=== PATIENT | male | born 1970 | race Hispanic/Latino ===

== ENCOUNTER 2016-10-27 09:50 | Outpatient (CLI) | payer BC ==
[2016-10-27] MEDS ORDERED: XYLOCAINE TOPICAL 4% TP ONE (10:57)
[2016-10-29] MEDS ORDERED: XYLOCAINE TOPICAL 4% TP ONE (08:48)
== END 2016-10-27 09:51 | disposition home or self-care (01) ==
LOC: WOUND 09:50
PROVIDERS: ATTEND Podiatrist
DX: E11.621 Type 2 diabetes mellitus with foot ulcer (principal); L97.522 Non-pressure chronic ulcer of other part of left foot with fat layer exposed; F41.9 Anxiety disorder, unspecified; I11.0 Hypertensive heart disease with heart failure; I50.9 Heart failure, unspecified; Z87.891 Personal history of nicotine dependence
CPT/HCPCS: 11042; 87075; 87116; G0463

== ENCOUNTER 2016-11-13 11:19 | Outpatient (CLI) | payer BC ==
[2016-11-13] MEDS ORDERED: XYLOCAINE TOPICAL 4% TP ONE ×2 (11:55→12:00)
== END 2016-11-13 11:20 | disposition home or self-care (01) ==
LOC: WOUND 11:19
PROVIDERS: ATTEND Podiatrist
DX: E11.621 Type 2 diabetes mellitus with foot ulcer (principal); L97.522 Non-pressure chronic ulcer of other part of left foot with fat layer exposed; E11.40 Type 2 diabetes mellitus with diabetic neuropathy, unspecified; F41.9 Anxiety disorder, unspecified; I11.0 Hypertensive heart disease with heart failure; I50.9 Heart failure, unspecified; Z89.9 Acquired absence of limb, unspecified; Z87.891 Personal history of nicotine dependence

== ENCOUNTER 2016-11-24 07:48 | Outpatient (CLI) | payer BC ==
[2016-11-24] MEDS ORDERED: XYLOCAINE TOPICAL 4% TP ONE ×2 (08:05→14:40)
== END 2016-11-24 07:49 | disposition home or self-care (01) ==
LOC: WOUND 07:48
PROVIDERS: ATTEND Podiatrist
DX: E11.621 Type 2 diabetes mellitus with foot ulcer (principal); L97.522 Non-pressure chronic ulcer of other part of left foot with fat layer exposed; E11.40 Type 2 diabetes mellitus with diabetic neuropathy, unspecified; I11.0 Hypertensive heart disease with heart failure; I50.9 Heart failure, unspecified; Z89.9 Acquired absence of limb, unspecified; Z87.891 Personal history of nicotine dependence; F41.9 Anxiety disorder, unspecified

== ENCOUNTER 2016-12-08 07:54 | Outpatient (CLI) | payer BC ==
[2016-12-08] MEDS ORDERED: XYLOCAINE TOPICAL 2% ONE (08:05)
[2016-12-08] MEDS ORDERED: XYLOCAINE TOPICAL 2% TP ONE (09:53)
== END 2016-12-08 07:55 | disposition home or self-care (01) ==
LOC: WOUND 07:54
PROVIDERS: ATTEND Podiatrist
DX: E11.621 Type 2 diabetes mellitus with foot ulcer (principal); L97.522 Non-pressure chronic ulcer of other part of left foot with fat layer exposed; E11.40 Type 2 diabetes mellitus with diabetic neuropathy, unspecified; F41.9 Anxiety disorder, unspecified; I11.0 Hypertensive heart disease with heart failure; I50.9 Heart failure, unspecified; Z89.9 Acquired absence of limb, unspecified; Z87.891 Personal history of nicotine dependence

== ENCOUNTER 2016-12-14 10:02 | Outpatient (CLI) | payer BC ==
--- NOTE | 2016-12-14 10:53 | XRay Report ---
LEFT FOOT, 3 views: History: Left foot injury. No comparison. 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 A soft tissue bandage is present on the distal foot. There is no obvious fracture, bony destruction or periostitis. No erosive joint pathology. Mild distal soft tissue swelling. IMPRESSION: Soft tissue swelling. No acute osseous findings. Surgical changes as described.
== END 2016-12-14 10:03 | disposition home or self-care (01) ==
LOC: XRAY 10:02
PROVIDERS: ATTEND Podiatrist
DX: S99.922D Unspecified injury of left foot, subsequent encounter (principal); L97.529 Non-pressure chronic ulcer of other part of left foot with unspecified severity; Z89.422 Acquired absence of other left toe(s); X58.XXXD Exposure to other specified factors, subsequent encounter

== ENCOUNTER 2016-12-15 08:02 | Outpatient (CLI) | payer BC ==
[2016-12-15] MEDS ORDERED: XYLOCAINE TOPICAL 2% ONE (08:08)
[2016-12-15] MEDS ORDERED: XYLOCAINE TOPICAL 4% TP ONE (12:20)
== END 2016-12-15 08:03 | disposition home or self-care (01) ==
LOC: WOUND 08:02
PROVIDERS: ATTEND Podiatrist
DX: E11.621 Type 2 diabetes mellitus with foot ulcer (principal); L97.522 Non-pressure chronic ulcer of other part of left foot with fat layer exposed; E11.40 Type 2 diabetes mellitus with diabetic neuropathy, unspecified; I11.0 Hypertensive heart disease with heart failure; I50.9 Heart failure, unspecified; F41.9 Anxiety disorder, unspecified; Z87.891 Personal history of nicotine dependence

== ENCOUNTER 2016-12-22 07:57 | Outpatient (CLI) | payer BC ==
[2016-12-22] MEDS ORDERED: XYLOCAINE TOPICAL 4% TP ONE ×2 (08:02→15:58)
== END 2016-12-22 07:58 | disposition home or self-care (01) ==
LOC: WOUND 07:57
PROVIDERS: ATTEND Podiatrist
DX: E11.621 Type 2 diabetes mellitus with foot ulcer (principal); L97.521 Non-pressure chronic ulcer of other part of left foot limited to breakdown of skin; E11.40 Type 2 diabetes mellitus with diabetic neuropathy, unspecified; I11.0 Hypertensive heart disease with heart failure; I50.9 Heart failure, unspecified; Z87.891 Personal history of nicotine dependence

== ENCOUNTER 2016-12-29 07:58 | Outpatient (CLI) | payer BC ==
[2016-12-29] MEDS ORDERED: XYLOCAINE TOPICAL 4% TP ONE ×2 (08:08→13:59)
== END 2016-12-29 07:59 | disposition home or self-care (01) ==
LOC: WOUND 07:58
PROVIDERS: ATTEND Surgery
DX: E11.621 Type 2 diabetes mellitus with foot ulcer (principal); L97.521 Non-pressure chronic ulcer of other part of left foot limited to breakdown of skin; E11.40 Type 2 diabetes mellitus with diabetic neuropathy, unspecified; I11.0 Hypertensive heart disease with heart failure; I50.9 Heart failure, unspecified; Z89.9 Acquired absence of limb, unspecified; Z87.891 Personal history of nicotine dependence

== ENCOUNTER 2017-01-15 07:52 | Outpatient (CLI) | payer BC ==
[2017-01-15] MEDS ORDERED: XYLOCAINE TOPICAL 4% TP ONE (08:05)
== END 2017-01-15 07:53 | disposition home or self-care (01) ==
LOC: WOUND 07:52
PROVIDERS: ATTEND Podiatrist
DX: E11.621 Type 2 diabetes mellitus with foot ulcer (principal); L97.522 Non-pressure chronic ulcer of other part of left foot with fat layer exposed; E11.40 Type 2 diabetes mellitus with diabetic neuropathy, unspecified; F41.9 Anxiety disorder, unspecified; I11.0 Hypertensive heart disease with heart failure; I50.9 Heart failure, unspecified; Z89.9 Acquired absence of limb, unspecified; Z87.891 Personal history of nicotine dependence

== ENCOUNTER 2017-01-29 07:55 | Outpatient (CLI) | payer BC ==
[2017-01-29] MEDS ORDERED: XYLOCAINE TOPICAL 2% ONE (08:28)
[2017-01-29] MEDS ORDERED: XYLOCAINE TOPICAL 2% TP ONE (09:54)
== END 2017-01-29 07:56 | disposition home or self-care (01) ==
LOC: WOUND 07:55
PROVIDERS: ATTEND Podiatrist
DX: E11.621 Type 2 diabetes mellitus with foot ulcer (principal); L97.523 Non-pressure chronic ulcer of other part of left foot with necrosis of muscle; E11.40 Type 2 diabetes mellitus with diabetic neuropathy, unspecified; L97.522 Non-pressure chronic ulcer of other part of left foot with fat layer exposed; I11.0 Hypertensive heart disease with heart failure; I50.9 Heart failure, unspecified; Z87.891 Personal history of nicotine dependence

== ENCOUNTER 2017-02-03 07:52 | Outpatient (CLI) | payer BC ==
--- NOTE | 2017-02-03 09:59 | Magnetic Resonance Report ---
MRI of the left foot. History: Cutaneous ulceration. Procedure: A multisequence multiplanar study was performed without contrast. Findings: Amputation of the first and second toes has been performed. There is soft tissue edema adjacent to the distal aspect of the first and second metatarsal heads. However there is no abnormal signal within the osseous structures to suggest osteomyelitis. No abnormal soft tissue fluid collections are seen. Impression: Inflammatory changes/ cellulitis in the soft tissues adjacent to the first and second metatarsal heads. No evidence of osteomyelitis.
== END 2017-02-03 07:53 | disposition home or self-care (01) ==
LOC: MRI 07:52
PROVIDERS: ATTEND Podiatrist
DX: E11.621 Type 2 diabetes mellitus with foot ulcer (principal); L97.529 Non-pressure chronic ulcer of other part of left foot with unspecified severity; L98.7 Excessive and redundant skin and subcutaneous tissue; Z89.422 Acquired absence of other left toe(s)
CPT/HCPCS: 73721

== ENCOUNTER 2017-02-05 07:53 | Outpatient (CLI) | payer BC ==
[2017-02-05] MEDS ORDERED: XYLOCAINE TOPICAL 4% TP ONE ×2 (08:14→08:25)
== END 2017-02-05 07:54 | disposition home or self-care (01) ==
LOC: WOUND 07:53
PROVIDERS: ATTEND Podiatrist
DX: E11.621 Type 2 diabetes mellitus with foot ulcer (principal); L97.523 Non-pressure chronic ulcer of other part of left foot with necrosis of muscle; E11.40 Type 2 diabetes mellitus with diabetic neuropathy, unspecified; I11.0 Hypertensive heart disease with heart failure; I50.9 Heart failure, unspecified; Z89.9 Acquired absence of limb, unspecified; Z87.891 Personal history of nicotine dependence

== ENCOUNTER 2017-02-19 07:48 | Outpatient (CLI) | payer BC ==
[2017-02-19] MEDS ORDERED: XYLOCAINE TOPICAL 4% TP ONE ×2 (08:13→08:22)
[2017-02-19] MEDS ORDERED: DAKIN'S FULL STRENGTH ONE (08:37)
[2017-02-19] MEDS ORDERED: DAKIN'S FULL STRENGTH TP ONE (15:24)
== END 2017-02-19 07:49 | disposition home or self-care (01) ==
LOC: WOUND 07:48
PROVIDERS: ATTEND Podiatrist
DX: E11.621 Type 2 diabetes mellitus with foot ulcer (principal); L97.522 Non-pressure chronic ulcer of other part of left foot with fat layer exposed; L97.523 Non-pressure chronic ulcer of other part of left foot with necrosis of muscle; E11.40 Type 2 diabetes mellitus with diabetic neuropathy, unspecified; F41.9 Anxiety disorder, unspecified; I11.0 Hypertensive heart disease with heart failure; I50.9 Heart failure, unspecified; Z98.49 Cataract extraction status, unspecified eye; Z87.891 Personal history of nicotine dependence

== ENCOUNTER 2017-02-26 07:47 | Outpatient (CLI) | payer BC ==
[2017-02-26] MEDS ORDERED: XYLOCAINE TOPICAL 4% TP ONE ×2 (08:42→08:59)
== END 2017-02-26 07:48 | disposition home or self-care (01) ==
LOC: WOUND 07:47
PROVIDERS: ATTEND Podiatrist
DX: E11.621 Type 2 diabetes mellitus with foot ulcer (principal); L97.522 Non-pressure chronic ulcer of other part of left foot with fat layer exposed; L97.523 Non-pressure chronic ulcer of other part of left foot with necrosis of muscle; E11.40 Type 2 diabetes mellitus with diabetic neuropathy, unspecified; F41.9 Anxiety disorder, unspecified; I11.0 Hypertensive heart disease with heart failure; I50.9 Heart failure, unspecified; Z98.62 Peripheral vascular angioplasty status; Z89.9 Acquired absence of limb, unspecified; Z87.891 Personal history of nicotine dependence

== ENCOUNTER 2017-03-12 08:05 | Outpatient (CLI) | payer BC ==
[2017-03-12] MEDS ORDERED: XYLOCAINE TOPICAL 4% TP ONE ×2 (08:18→09:00)
== END 2017-03-12 08:06 | disposition home or self-care (01) ==
LOC: WOUND 08:05
PROVIDERS: ATTEND Podiatrist
DX: E11.621 Type 2 diabetes mellitus with foot ulcer (principal); L97.522 Non-pressure chronic ulcer of other part of left foot with fat layer exposed; E11.40 Type 2 diabetes mellitus with diabetic neuropathy, unspecified; F41.9 Anxiety disorder, unspecified; I11.0 Hypertensive heart disease with heart failure; I50.9 Heart failure, unspecified; Z98.62 Peripheral vascular angioplasty status; Z87.891 Personal history of nicotine dependence
CPT/HCPCS: 97605

== ENCOUNTER 2017-03-15 13:02 | Outpatient (CLI) | payer BC | END 2017-03-15 13:03 | disposition home or self-care (01) | LOC: WOUND 13:02 | PROVIDERS: ATTEND Internal Medicine | DX: E11.621 Type 2 diabetes mellitus with foot ulcer (principal); L97.522 Non-pressure chronic ulcer of other part of left foot with fat layer exposed; E11.40 Type 2 diabetes mellitus with diabetic neuropathy, unspecified; I11.0 Hypertensive heart disease with heart failure; I50.9 Heart failure, unspecified; Z87.891 Personal history of nicotine dependence | CPT/HCPCS: 87075; 87116; 97605; G0463; 99213 ==

== ENCOUNTER 2017-03-19 07:48 | Outpatient (CLI) | payer BC ==
[2017-03-19] MEDS ORDERED: XYLOCAINE TOPICAL 4% TP ONE ×2 (08:15→08:55)
== END 2017-03-19 07:49 | disposition home or self-care (01) ==
LOC: WOUND 07:48
PROVIDERS: ATTEND Podiatrist
DX: E11.621 Type 2 diabetes mellitus with foot ulcer (principal); L97.522 Non-pressure chronic ulcer of other part of left foot with fat layer exposed; E11.40 Type 2 diabetes mellitus with diabetic neuropathy, unspecified; I11.0 Hypertensive heart disease with heart failure; I50.9 Heart failure, unspecified; F41.9 Anxiety disorder, unspecified; Z87.891 Personal history of nicotine dependence
CPT/HCPCS: 97605

== ENCOUNTER 2017-03-23 13:24 | Outpatient (CLI) | payer BC | END 2017-03-23 13:25 | disposition home or self-care (01) | LOC: WOUND 13:24 | PROVIDERS: ATTEND Surgery | DX: E11.621 Type 2 diabetes mellitus with foot ulcer (principal); L97.521 Non-pressure chronic ulcer of other part of left foot limited to breakdown of skin; I11.0 Hypertensive heart disease with heart failure; I50.9 Heart failure, unspecified; Z89.9 Acquired absence of limb, unspecified; Z87.891 Personal history of nicotine dependence | CPT/HCPCS: 97605 ==

== ENCOUNTER 2017-03-26 07:54 | Outpatient (CLI) | payer BC ==
[2017-03-26] MEDS ORDERED: XYLOCAINE TOPICAL 4% TP ONE ×3 (08:24→09:29)
== END 2017-03-26 07:55 | disposition home or self-care (01) ==
LOC: WOUND 07:54
PROVIDERS: ATTEND Podiatrist
DX: E11.621 Type 2 diabetes mellitus with foot ulcer (principal); L97.522 Non-pressure chronic ulcer of other part of left foot with fat layer exposed; E11.40 Type 2 diabetes mellitus with diabetic neuropathy, unspecified; I11.0 Hypertensive heart disease with heart failure; I50.9 Heart failure, unspecified; F41.9 Anxiety disorder, unspecified; Z89.9 Acquired absence of limb, unspecified; Z87.891 Personal history of nicotine dependence
CPT/HCPCS: 97605

== ENCOUNTER 2017-04-02 08:00 | Outpatient (CLI) | payer BC ==
[2017-04-02] MEDS ORDERED: XYLOCAINE TOPICAL 4% TP ONE ×2 (08:07→08:12)
== END 2017-04-02 08:01 | disposition home or self-care (01) ==
LOC: WOUND 08:00
PROVIDERS: ATTEND Podiatrist
DX: E11.621 Type 2 diabetes mellitus with foot ulcer (principal); L97.522 Non-pressure chronic ulcer of other part of left foot with fat layer exposed; E11.40 Type 2 diabetes mellitus with diabetic neuropathy, unspecified; I11.0 Hypertensive heart disease with heart failure; I50.9 Heart failure, unspecified; F41.9 Anxiety disorder, unspecified; Z87.891 Personal history of nicotine dependence
CPT/HCPCS: 97605

== ENCOUNTER 2017-04-06 12:59 | Outpatient (CLI) | payer BC | END 2017-04-06 13:00 | disposition home or self-care (01) | LOC: WOUND 12:59 | PROVIDERS: ATTEND Surgery | DX: E11.621 Type 2 diabetes mellitus with foot ulcer (principal); L97.522 Non-pressure chronic ulcer of other part of left foot with fat layer exposed; E11.40 Type 2 diabetes mellitus with diabetic neuropathy, unspecified; I11.0 Hypertensive heart disease with heart failure; I50.9 Heart failure, unspecified; Z87.891 Personal history of nicotine dependence | CPT/HCPCS: 97605 ==

== ENCOUNTER 2017-04-13 12:59 | Outpatient (CLI) | payer BC | END 2017-04-13 13:00 | disposition home or self-care (01) | LOC: WOUND 12:59 | PROVIDERS: ATTEND Surgery | DX: E11.621 Type 2 diabetes mellitus with foot ulcer (principal); L97.522 Non-pressure chronic ulcer of other part of left foot with fat layer exposed; E11.40 Type 2 diabetes mellitus with diabetic neuropathy, unspecified; I11.0 Hypertensive heart disease with heart failure; I50.9 Heart failure, unspecified; Z87.891 Personal history of nicotine dependence | CPT/HCPCS: 97605 ==

== ENCOUNTER 2017-04-16 08:05 | Outpatient (CLI) | payer BC ==
[2017-04-16] MEDS ORDERED: XYLOCAINE TOPICAL 4% TP ONE (08:39)
[2017-04-16] MEDS ORDERED: NACL 0.9% 500 ML IR ONE (09:25)
[2017-04-16] MEDS ORDERED: SODIUM CHLORIDE FLUSH SYRINGE 10 ML IV SCH (14:56)
[2017-04-16] MEDS ORDERED: NACL 0.9% IR ONE (14:56)
== END 2017-04-16 08:06 | disposition home or self-care (01) ==
LOC: WOUND 08:05
PROVIDERS: ATTEND Podiatrist
DX: E11.621 Type 2 diabetes mellitus with foot ulcer (principal); L97.522 Non-pressure chronic ulcer of other part of left foot with fat layer exposed; E11.40 Type 2 diabetes mellitus with diabetic neuropathy, unspecified; I11.0 Hypertensive heart disease with heart failure; I50.9 Heart failure, unspecified; F41.9 Anxiety disorder, unspecified; Z87.891 Personal history of nicotine dependence
CPT/HCPCS: 97597

== ENCOUNTER 2017-04-30 07:58 | Outpatient (CLI) | payer BC ==
[2017-04-30] MEDS ORDERED: XYLOCAINE TOPICAL 4% TP ONE ×2 (08:28→08:48)
== END 2017-04-30 07:59 | disposition home or self-care (01) ==
LOC: WOUND 07:58
PROVIDERS: ATTEND Podiatrist
DX: E11.621 Type 2 diabetes mellitus with foot ulcer (principal); L97.522 Non-pressure chronic ulcer of other part of left foot with fat layer exposed; E11.40 Type 2 diabetes mellitus with diabetic neuropathy, unspecified; I11.0 Hypertensive heart disease with heart failure; I50.9 Heart failure, unspecified; F41.9 Anxiety disorder, unspecified; Z98.62 Peripheral vascular angioplasty status; Z87.891 Personal history of nicotine dependence

== ENCOUNTER 2017-05-07 09:01 | Outpatient (CLI) | payer BC ==
[2017-05-07] MEDS ORDERED: XYLOCAINE TOPICAL 4% TP ONE ×2 (09:11→09:12)
== END 2017-05-07 09:02 | disposition home or self-care (01) ==
LOC: WOUND 09:01
PROVIDERS: ATTEND Podiatrist
DX: E11.621 Type 2 diabetes mellitus with foot ulcer (principal); L97.522 Non-pressure chronic ulcer of other part of left foot with fat layer exposed; L97.523 Non-pressure chronic ulcer of other part of left foot with necrosis of muscle; E11.40 Type 2 diabetes mellitus with diabetic neuropathy, unspecified; I11.0 Hypertensive heart disease with heart failure; I50.9 Heart failure, unspecified; F41.9 Anxiety disorder, unspecified; Z98.62 Peripheral vascular angioplasty status; Z87.891 Personal history of nicotine dependence

== ENCOUNTER 2017-05-14 08:42 | Outpatient (CLI) | payer BC ==
[2017-05-14] MEDS ORDERED: XYLOCAINE TOPICAL 4% TP ONE ×2 (09:24→09:36)
== END 2017-05-14 08:43 | disposition home or self-care (01) ==
LOC: WOUND 08:42
PROVIDERS: ATTEND Podiatrist
DX: E11.621 Type 2 diabetes mellitus with foot ulcer (principal); L97.522 Non-pressure chronic ulcer of other part of left foot with fat layer exposed; E11.40 Type 2 diabetes mellitus with diabetic neuropathy, unspecified; I11.0 Hypertensive heart disease with heart failure; I50.9 Heart failure, unspecified; F41.9 Anxiety disorder, unspecified; Z98.62 Peripheral vascular angioplasty status; Z87.891 Personal history of nicotine dependence

== ENCOUNTER 2017-05-28 08:40 | Outpatient (CLI) | payer BC ==
[2017-05-28] MEDS ORDERED: XYLOCAINE TOPICAL 4% TP ONE (09:04)
== END 2017-05-28 08:41 | disposition home or self-care (01) ==
LOC: WOUND 08:40
PROVIDERS: ATTEND Podiatrist
DX: E11.621 Type 2 diabetes mellitus with foot ulcer (principal); L97.522 Non-pressure chronic ulcer of other part of left foot with fat layer exposed; E11.40 Type 2 diabetes mellitus with diabetic neuropathy, unspecified; I11.0 Hypertensive heart disease with heart failure; I50.9 Heart failure, unspecified; F41.9 Anxiety disorder, unspecified; Z89.432 Acquired absence of left foot

== ENCOUNTER 2017-06-04 09:52 | Outpatient (CLI) | payer BC ==
[2017-06-04] MEDS ORDERED: XYLOCAINE TOPICAL 4% TP ONE (10:02)
== END 2017-06-04 09:53 | disposition home or self-care (01) ==
LOC: WOUND 09:52
PROVIDERS: ATTEND Podiatrist
DX: E11.621 Type 2 diabetes mellitus with foot ulcer (principal); L97.522 Non-pressure chronic ulcer of other part of left foot with fat layer exposed; E11.40 Type 2 diabetes mellitus with diabetic neuropathy, unspecified; I11.0 Hypertensive heart disease with heart failure; I50.9 Heart failure, unspecified; F41.9 Anxiety disorder, unspecified; Z87.891 Personal history of nicotine dependence

== ENCOUNTER 2017-06-18 08:57 | Outpatient (CLI) | payer BC ==
[2017-06-18] MEDS ORDERED: XYLOCAINE TOPICAL 4% TP ONE ×2 (09:14→09:19)
== END 2017-06-18 08:58 | disposition home or self-care (01) ==
LOC: WOUND 08:57
PROVIDERS: ATTEND Podiatrist
DX: E11.621 Type 2 diabetes mellitus with foot ulcer (principal); L97.522 Non-pressure chronic ulcer of other part of left foot with fat layer exposed; E11.40 Type 2 diabetes mellitus with diabetic neuropathy, unspecified; I11.0 Hypertensive heart disease with heart failure; I50.9 Heart failure, unspecified; F41.9 Anxiety disorder, unspecified; Z87.891 Personal history of nicotine dependence; Z89.422 Acquired absence of other left toe(s)
CPT/HCPCS: 29445

== ENCOUNTER 2017-06-21 13:14 | Outpatient (CLI) | payer BC | END 2017-06-21 13:15 | disposition home or self-care (01) | LOC: WOUND 13:14 | PROVIDERS: ATTEND Internal Medicine | DX: E11.621 Type 2 diabetes mellitus with foot ulcer (principal); L97.522 Non-pressure chronic ulcer of other part of left foot with fat layer exposed; E11.40 Type 2 diabetes mellitus with diabetic neuropathy, unspecified; I11.0 Hypertensive heart disease with heart failure; I50.9 Heart failure, unspecified; Z89.422 Acquired absence of other left toe(s); Z87.891 Personal history of nicotine dependence | CPT/HCPCS: 29445; G0463 ==

== ENCOUNTER 2017-06-25 08:36 | Outpatient (CLI) | payer BC ==
[2017-06-25] MEDS ORDERED: XYLOCAINE TOPICAL 4% TP ONE (08:42)
== END 2017-06-25 08:37 | disposition home or self-care (01) ==
LOC: WOUND 08:36
PROVIDERS: ATTEND Podiatrist
DX: E11.621 Type 2 diabetes mellitus with foot ulcer (principal); L97.522 Non-pressure chronic ulcer of other part of left foot with fat layer exposed; E11.40 Type 2 diabetes mellitus with diabetic neuropathy, unspecified; I11.0 Hypertensive heart disease with heart failure; I50.9 Heart failure, unspecified; Z89.422 Acquired absence of other left toe(s); Z87.891 Personal history of nicotine dependence
CPT/HCPCS: 29445

== ENCOUNTER 2017-06-29 11:19 | Outpatient (CLI) | payer BC ==
[2017-06-29] MEDS ORDERED: XYLOCAINE TOPICAL 4% TP ONE (12:29)
== END 2017-06-29 11:20 | disposition home or self-care (01) ==
LOC: WOUND 11:19
PROVIDERS: ATTEND Surgery
DX: E11.621 Type 2 diabetes mellitus with foot ulcer (principal); L97.521 Non-pressure chronic ulcer of other part of left foot limited to breakdown of skin; I11.0 Hypertensive heart disease with heart failure; I50.9 Heart failure, unspecified; Z87.891 Personal history of nicotine dependence
CPT/HCPCS: 29445

== ENCOUNTER 2017-07-09 08:40 | Outpatient (CLI) | payer BC ==
[2017-07-09] MEDS ORDERED: XYLOCAINE TOPICAL 4% TP ONE ×2 (09:11→09:14)
== END 2017-07-09 08:41 | disposition home or self-care (01) ==
LOC: WOUND 08:40
PROVIDERS: ATTEND Podiatrist
DX: E11.621 Type 2 diabetes mellitus with foot ulcer (principal); L97.522 Non-pressure chronic ulcer of other part of left foot with fat layer exposed; E11.40 Type 2 diabetes mellitus with diabetic neuropathy, unspecified; I11.0 Hypertensive heart disease with heart failure; I50.9 Heart failure, unspecified; F41.9 Anxiety disorder, unspecified; Z89.422 Acquired absence of other left toe(s); Z87.891 Personal history of nicotine dependence

== ENCOUNTER 2017-07-16 08:57 | Outpatient (CLI) | payer BC ==
[2017-07-16] MEDS ORDERED: XYLOCAINE TOPICAL 4% TP ONE (12:00)
== END 2017-07-16 08:58 | disposition home or self-care (01) ==
LOC: WOUND 08:57
PROVIDERS: ATTEND Podiatrist
DX: E11.622 Type 2 diabetes mellitus with other skin ulcer (principal); L97.522 Non-pressure chronic ulcer of other part of left foot with fat layer exposed; L97.322 Non-pressure chronic ulcer of left ankle with fat layer exposed; E11.40 Type 2 diabetes mellitus with diabetic neuropathy, unspecified; I11.0 Hypertensive heart disease with heart failure; I50.9 Heart failure, unspecified; F41.9 Anxiety disorder, unspecified; Z89.422 Acquired absence of other left toe(s); Z98.49 Cataract extraction status, unspecified eye; Z87.891 Personal history of nicotine dependence

== ENCOUNTER 2017-07-30 10:44 | Outpatient (CLI) | payer BC ==
[2017-07-30] MEDS ORDERED: XYLOCAINE TOPICAL 4% TP ONE (11:09)
[2017-07-30] MEDS ORDERED: SILVER NITRATE TP ONE ×2 (12:43→15:14)
== END 2017-07-30 10:45 | disposition home or self-care (01) ==
LOC: WOUND 10:44
PROVIDERS: ATTEND Podiatrist
DX: E11.621 Type 2 diabetes mellitus with foot ulcer (principal); L97.522 Non-pressure chronic ulcer of other part of left foot with fat layer exposed; L97.321 Non-pressure chronic ulcer of left ankle limited to breakdown of skin; E11.40 Type 2 diabetes mellitus with diabetic neuropathy, unspecified; I11.0 Hypertensive heart disease with heart failure; I50.9 Heart failure, unspecified; F41.9 Anxiety disorder, unspecified; Z89.422 Acquired absence of other left toe(s); Z98.49 Cataract extraction status, unspecified eye; Z87.891 Personal history of nicotine dependence
CPT/HCPCS: 29445; 87075

== ENCOUNTER 2017-08-03 13:09 | Outpatient (CLI) | payer BC | END 2017-08-03 13:10 | disposition home or self-care (01) | LOC: WOUND 13:09 | PROVIDERS: ATTEND Surgery | DX: E11.621 Type 2 diabetes mellitus with foot ulcer (principal); L97.521 Non-pressure chronic ulcer of other part of left foot limited to breakdown of skin; I11.0 Hypertensive heart disease with heart failure; I50.9 Heart failure, unspecified; Z98.49 Cataract extraction status, unspecified eye; Z87.891 Personal history of nicotine dependence ==

== ENCOUNTER 2017-08-06 08:49 | Outpatient (CLI) | payer BC ==
[2017-08-06] MEDS ORDERED: XYLOCAINE TOPICAL 4% TP ONE (09:04)
== END 2017-08-06 08:50 | disposition home or self-care (01) ==
LOC: WOUND 08:49
PROVIDERS: ATTEND Podiatrist
DX: E11.621 Type 2 diabetes mellitus with foot ulcer (principal); L97.522 Non-pressure chronic ulcer of other part of left foot with fat layer exposed; E11.40 Type 2 diabetes mellitus with diabetic neuropathy, unspecified; E11.622 Type 2 diabetes mellitus with other skin ulcer; L97.321 Non-pressure chronic ulcer of left ankle limited to breakdown of skin; I11.0 Hypertensive heart disease with heart failure; I50.9 Heart failure, unspecified; Z89.422 Acquired absence of other left toe(s); Z98.49 Cataract extraction status, unspecified eye; Z87.891 Personal history of nicotine dependence

== ENCOUNTER 2017-08-13 08:42 | Outpatient (CLI) | payer BC ==
[2017-08-13] MEDS ORDERED: XYLOCAINE TOPICAL 4% TP ONE (09:03)
== END 2017-08-13 08:43 | disposition home or self-care (01) ==
LOC: WOUND 08:42
PROVIDERS: ATTEND Podiatrist
DX: E11.621 Type 2 diabetes mellitus with foot ulcer (principal); L97.523 Non-pressure chronic ulcer of other part of left foot with necrosis of muscle; E11.40 Type 2 diabetes mellitus with diabetic neuropathy, unspecified; I11.0 Hypertensive heart disease with heart failure; I50.9 Heart failure, unspecified; Z89.422 Acquired absence of other left toe(s)

== ENCOUNTER 2017-08-20 08:24 | Outpatient (CLI) | payer BC ==
[2017-08-20] MEDS ORDERED: XYLOCAINE TOPICAL 4% TP ONE ×2 (08:39→09:43)
== END 2017-08-20 08:25 | disposition home or self-care (01) ==
LOC: WOUND 08:24
PROVIDERS: ATTEND Podiatrist
DX: E11.621 Type 2 diabetes mellitus with foot ulcer (principal); L97.523 Non-pressure chronic ulcer of other part of left foot with necrosis of muscle; E11.40 Type 2 diabetes mellitus with diabetic neuropathy, unspecified; E11.36 Type 2 diabetes mellitus with diabetic cataract; I11.0 Hypertensive heart disease with heart failure; I50.9 Heart failure, unspecified; Z89.422 Acquired absence of other left toe(s); Z87.891 Personal history of nicotine dependence
CPT/HCPCS: 97608

== ENCOUNTER 2017-08-27 08:37 | Outpatient (CLI) | payer BC ==
[2017-08-27] MEDS ORDERED: XYLOCAINE TOPICAL 4% TP ONE ×2 (09:06→09:44)
== END 2017-08-27 08:38 | disposition home or self-care (01) ==
LOC: WOUND 08:37
PROVIDERS: ATTEND Podiatrist
DX: E11.621 Type 2 diabetes mellitus with foot ulcer (principal); L97.523 Non-pressure chronic ulcer of other part of left foot with necrosis of muscle; I11.0 Hypertensive heart disease with heart failure; I50.9 Heart failure, unspecified; E11.40 Type 2 diabetes mellitus with diabetic neuropathy, unspecified; L84 Corns and callosities; Z89.422 Acquired absence of other left toe(s); Z87.891 Personal history of nicotine dependence; Z98.49 Cataract extraction status, unspecified eye

== ENCOUNTER 2017-10-06 07:55 | Outpatient (CLI) | payer OTHER ==
[2017-10-06] MEDS ORDERED: XYLOCAINE TOPICAL 4% TP ONE (08:22)
[2017-10-06] MEDS ORDERED: SILVER NITRATE TP ONE ×2 (08:54→11:04)
== END 2017-10-06 07:56 | disposition home or self-care (01) ==
LOC: WOUND 07:55
PROVIDERS: ATTEND Surgery
DX: E11.621 Type 2 diabetes mellitus with foot ulcer (principal); L97.523 Non-pressure chronic ulcer of other part of left foot with necrosis of muscle; I11.0 Hypertensive heart disease with heart failure; I50.9 Heart failure, unspecified; E11.40 Type 2 diabetes mellitus with diabetic neuropathy, unspecified; L84 Corns and callosities; Z89.422 Acquired absence of other left toe(s); Z87.891 Personal history of nicotine dependence; Z98.49 Cataract extraction status, unspecified eye
CPT/HCPCS: 87075; 87116

== ENCOUNTER 2017-10-13 08:38 | Outpatient (CLI) | payer OTHER ==
[2017-10-13] MEDS ORDERED: XYLOCAINE TOPICAL 4% TP ONE ×2 (08:50→09:49)
[2017-10-13] MEDS ORDERED: SILVER NITRATE TP ONE ×2 (09:27→09:49)
== END 2017-10-13 08:39 | disposition home or self-care (01) ==
LOC: WOUND 08:38
PROVIDERS: ATTEND Surgery
DX: E11.621 Type 2 diabetes mellitus with foot ulcer (principal); L97.523 Non-pressure chronic ulcer of other part of left foot with necrosis of muscle; E11.40 Type 2 diabetes mellitus with diabetic neuropathy, unspecified; Z89.422 Acquired absence of other left toe(s); I11.0 Hypertensive heart disease with heart failure; I50.9 Heart failure, unspecified; Z98.49 Cataract extraction status, unspecified eye; Z87.891 Personal history of nicotine dependence

== ENCOUNTER 2017-10-27 08:38 | Outpatient (CLI) | payer OTHER | END 2017-10-27 08:39 | disposition home or self-care (01) | LOC: WOUND 08:38 | PROVIDERS: ATTEND Surgery | DX: E11.621 Type 2 diabetes mellitus with foot ulcer (principal); L97.523 Non-pressure chronic ulcer of other part of left foot with necrosis of muscle; E11.40 Type 2 diabetes mellitus with diabetic neuropathy, unspecified; I11.0 Hypertensive heart disease with heart failure; I50.9 Heart failure, unspecified; Z89.422 Acquired absence of other left toe(s); Z87.891 Personal history of nicotine dependence | CPT/HCPCS: 99213; G0463 ==

== ENCOUNTER 2017-11-03 08:27 | Outpatient (CLI) | payer OTHER | END 2017-11-03 08:28 | disposition home or self-care (01) | LOC: WOUND 08:27 | PROVIDERS: ATTEND Surgery | DX: E11.621 Type 2 diabetes mellitus with foot ulcer (principal); L97.523 Non-pressure chronic ulcer of other part of left foot with necrosis of muscle; E11.40 Type 2 diabetes mellitus with diabetic neuropathy, unspecified; I11.0 Hypertensive heart disease with heart failure; I50.9 Heart failure, unspecified; Z89.422 Acquired absence of other left toe(s); Z98.49 Cataract extraction status, unspecified eye; Z87.891 Personal history of nicotine dependence | CPT/HCPCS: 99214; G0463 ==